=== PATIENT | male | born 1980 | race Two or more races ===

== ENCOUNTER 2022-10-31 08:13 | Emergency (ER) | payer OTHER ==
[~2022-10-31] VITALS: Ht 165.1 cm; Wt 104.3 kg
[2022-10-31] MEDS ORDERED: ENALAPRIL MALEA10 MG PO (08:26)
== END 2022-10-31 10:01 | disposition home or self-care (01) ==
LOC: ER 08:13
DX: M62.838 Other muscle spasm (principal); Z88.6 Allergy status to analgesic agent

== ENCOUNTER 2023-08-09 09:31 | Outpatient (CLI) | payer OTHER ==
[~2023-08-09 09:31] MED LIST: ENALAPRIL MALEA10 MG PO
== END 2023-08-09 09:35 | disposition home or self-care (01) ==
LOC: RAD 09:31
PROVIDERS: ATTEND Internal Medicine
DX: I11.9 Hypertensive heart disease without heart failure (principal)

== ENCOUNTER 2023-08-15 08:52 | Outpatient (CLI) | payer OTHER | END 2023-08-15 08:55 | disposition home or self-care (01) | LOC: NUCLEAR 08:52 | PROVIDERS: ATTEND Internal Medicine | DX: I11.9 Hypertensive heart disease without heart failure (principal); I42.9 Cardiomyopathy, unspecified ==

== ENCOUNTER 2024-11-14 10:20 | Emergency (ER) | payer OTHER ==
[~2024-11-14] VITALS: Ht 165.1 cm; Wt 84.4 kg
[2024-11-14] MEDS ORDERED: AMLODIPINE-VAL1 EACH PO (10:30)
[2024-11-14 13:41] LABS: COVID-19 AG POSITIVE (NEGATIVE)
[2024-11-14 13:43] LABS: BASO % 0.3 % (0.1-1.2); EOS # 0.12 (0.04-0.54); EOS % 1.4 % (0.7-7.0); HEMATOCRIT 45.1 % (40.1-51.0); HEMOGLOBIN 15.4 g/dL (13.7-17.5); LYMPH # 0.73 (1.18-3.74); LYMPH % 8.5 % (19.3-53.1); MEAN CORPUSCULAR HEMOGLOBIN 28.6 pg (25.6-32.2); NEUT % 76.7 % (34.0-71.1); PLATELET COUNT 191 K/uL (163-369); RED BLOOD COUNT 5.39 M/uL (4.63-6.08); RED CELL DISTRIBUTION WIDTH 12.5 % (11.6-14.4)
[2024-11-14 13:44] LABS: MONO % 12.8 % (4.7-12.5)
[2024-11-14 13:57] LABS: INFLUENZA A AG NEGATIVE (NEGATIVE); INFLUENZA B AG NEGATIVE (NEGATIVE)
[2024-11-14] MEDS ORDERED: ACETAMINOPHEN500 M1 PO (15:14)
[2024-11-14] MEDS ORDERED: GILTUSS COUGH-118 M1 PO (15:14)
[2024-11-14] MEDS ORDERED: PAXLOVID 300-11 EAC1 PO (15:14)
== END 2024-11-14 15:34 | disposition home or self-care (01) ==
LOC: ER 10:27
PROVIDERS: Preventive Medicine Public Health & General Preventive Medicine
DX: U07.1 COVID-19 (principal); I10 Essential (primary) hypertension; Z88.6 Allergy status to analgesic agent